=== PATIENT | female | born 1970 | race American Indian/Alaskan Native ===

== ENCOUNTER 2021-08-08 09:33 | Emergency (ER) | payer SELFPAY ==
[2021-08-08] MEDS ORDERED: KETOROLAC 10 MG TAB PO ONE (09:52)
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
[2021-08-08 09:59] VITALS: BP 130/85
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
== END 2021-08-08 10:45 | disposition home or self-care (01) ==
LOC: ED 09:33
DX: S39.012A Strain of muscle, fascia and tendon of lower back, initial encounter (principal); J30.81 Allergic rhinitis due to animal (cat) (dog) hair and dander; Z91.012 Allergy to eggs; V43.52XA Car driver injured in collision with other type car in traffic accident, initial encounter; Y93.89 Activity, other specified; Y92.89 Other specified places as the place of occurrence of the external cause; Y99.8 Other external cause status
CPT/HCPCS: 72100; 99283